=== PATIENT | female | born 1985 | race Asian ===

== ENCOUNTER 2017-03-12 09:33 | Inpatient (IN) | payer SELFPAY ==
[~2017-03-12] VITALS: Ht 154.9 cm; Wt 70.8 kg
[2017-03-15] MEDS ORDERED: OXYTOCIN 10 UNITS/ML VIAL IM ONE (01:40)
[2017-03-15] MEDS ORDERED: NALBUPHINE 10 MG/ML AMP IVP PRN (01:40)
[2017-03-15] MEDS ORDERED: METHYLERGONOVINE 0.2 MG/ML AMP IM PRN (01:40)
[2017-03-15] MEDS ORDERED: CARBOPROST 250 MCG/ML AMP IM PRN (01:40)
[2017-03-15] MEDS ORDERED: PROMETHAZINE 25 MG/ML VIAL IVP PRN (01:40)
[2017-03-15] MEDS ORDERED: OXYTOCIN 20 UNITS in LACTATED RINGERS 1,000 ML IV SCH (01:40)
[2017-03-15 02:46] LABS: BASOPHILS # (AUTO) 0.1 K/uL (0.00-0.22); BASOPHILS % (AUTO) 0.7 % (0.0-2.0); EOSINOPHILS # (AUTO) 0.1 K/uL (0-0.4); EOSINOPHILS % (AUTO) 1.2 % (0.0-4.0); HEMATOCRIT 37.5 % (36-48); HEMOGLOBIN 12.5 g/dL (12.0-16.0); LYMPHOCYTES # (AUTO) 1.5 K/uL (2.5-16.5); LYMPHOCYTES % (AUTO) 17.2 % (20.5-51.1); MEAN CORPUSCULAR HEMOGLOBIN 30 pg (27-31); MEAN CORPUSCULAR HGB CONC 33 g/dL (33-37); MEAN CORPUSCULAR VOLUME 89 fL (80-94); MONOCYTES # (AUTO) 0.8 K/uL (0.8-1.0); MONOCYTES % (AUTO) 8.4 % (1.7-9.3); NEUTROPHILS # (AUTO) 6.5 K/uL (1.8-7.7); NEUTROPHILS % (AUTO) 72.5 % (42.2-75.2); PLATELET COUNT (AUTO) 98 K/uL (140-450); RED BLOOD CELL COUNT(AUTO) 4.22 MIL/uL (4.20-5.40); RED CELL DISTRIBUTION WIDTH 13.2 % (11.6-13.7)
[2017-03-15] MEDS: LACTATED RINGERS 1,000 ML IV SCH ×3 (02:52→20:28)
[2017-03-15] MEDS ORDERED: MISOPROSTOL 25 MCG TAB VG SCH (03:00)
[2017-03-15] MEDS ORDERED: MISOPROSTOL 25 MCG TAB ONE (03:13)
[2017-03-15 03:30] LABS: APPEARANCE,URINE CLEAR (CLEAR); BILIRUBIN,URINE NEGATIVE (NEGATIVE); BLOOD, URINE 2+ (NEGATIVE); COLOR,URINE YELLOW (YELLOW); LEUKOCYTE ESTERASE ,URINE NEGATIVE (NEGATIVE); NITRITE, URINE NEGATIVE (NEGATIVE); UGLUCOSE NEGATIVE (NEGATIVE)
[2017-03-15 05:06] LABS: RBC,URINE 0-5 (RARE) /HPF (0-5); WBC,URINE 0-5 (RARE) /HPF (0-5)
[2017-03-15 05:16] VITALS: BP 110/77
--- NOTE | 2017-03-15 08:44 | NUR ---
PATIENT HAS BEEN SCREENED AND CATEGORIZED LOW NUTRITION RISK. PATIENT WILL BE SEEN WITHIN 7 DAYS OF ADMISSION. 03/21/[address]
[2017-03-15] MEDS ORDERED: PROMETHAZINE 25 MG/ML VIAL ONE (13:06)
[2017-03-15] MEDS ORDERED: NALBUPHINE HYDROCHLORIDE 10 MG/ML VIAL ONE (13:06)
[2017-03-15] MEDS ORDERED: ROPIVACAINE 0.2%/NS PREMIX 250 ML EPI ONE (14:57)
[2017-03-15] MEDS ORDERED: ROPIVACAINE 0.2%/NS PREMIX 250 ML EPI SCH (15:30)
[2017-03-15] MEDS ORDERED: OXYTOCIN 10 UNITS/ML VIAL ONE (18:47)
[2017-03-15] MEDS ORDERED: METHYLERGONOVINE 0.2 MG/ML AMP ONE (22:04)
[2017-03-16] MEDS ORDERED: ceFAZolin 1,000 MG VIAL ONE (00:30)
[2017-03-16] MEDS ORDERED: oxyCODONE/APAP 5/325 MG 1 TAB TAB PO PRN (01:20)
[2017-03-16] MEDS ORDERED: BENZOCAINE/MENTHOL 20%-0.5% 60 GM CAN TP PRN (01:20)
[2017-03-16] MEDS ORDERED: METHYLERGONOVINE 0.2 MG/ML AMP IM PRN (01:20)
[2017-03-16] MEDS ORDERED: HYDROcodone/APAP 5/325 MG 1 TAB TAB PO PRN (01:20)
[2017-03-16] MEDS ORDERED: MEASLES, MUMPS, AND RUBELLA 1 VIAL SQVAC PRN (01:20)
[2017-03-16] MEDS ORDERED: OXYTOCIN 10 UNITS/ML VIAL IM PRN (01:20)
[2017-03-16] MEDS ORDERED: IBUPROFEN 800 MG TAB PO PRN (01:20)
[2017-03-16] MEDS ORDERED: TEMAZEPAM 15 MG CAP PO PRN (01:20)
[2017-03-16 07:48] LABS: BASOPHILS % (AUTO) 0.2 % (0.0-2.0); EOSINOPHILS # (AUTO) 0.4 K/uL (0-0.4); EOSINOPHILS % (AUTO) 2.6 % (0.0-4.0); HEMATOCRIT 32.3 % (36-48); HEMOGLOBIN 10.9 g/dL (12.0-16.0); LYMPHOCYTES # (AUTO) 0.8 K/uL (2.5-16.5); LYMPHOCYTES % (AUTO) 4.9 % (20.5-51.1); MEAN CORPUSCULAR HEMOGLOBIN 30 pg (27-31); MEAN CORPUSCULAR HGB CONC 34 g/dL (33-37); MEAN CORPUSCULAR VOLUME 88 fL (80-94); MONOCYTES # (AUTO) 0.5 K/uL (0.8-1.0); NEUTROPHILS # (AUTO) 15.4 K/uL (1.8-7.7); NEUTROPHILS % (AUTO) 89.3 % (42.2-75.2); PLATELET COUNT (AUTO) 110 K/uL (140-450); RED BLOOD CELL COUNT(AUTO) 3.68 MIL/uL (4.20-5.40); RED CELL DISTRIBUTION WIDTH 12.8 % (11.6-13.7); WHITE BLOOD COUNT (AUTO) 17.1 K/uL (4.8-10.8)
[2017-03-16] MEDS: IBUPROFEN 800 MG TAB PO PRN (14:10)
[2017-03-16 16:37] LABS: RAPID PLASMA REAGIN NON-REACTIVE (Non Reactiv)
[2017-03-16] MEDS ORDERED: DOCUSATE SOD/SENNA 50/8.6 MG 1 TAB PO SCH (21:00)
[2017-03-17] MEDS: IBUPROFEN 800 MG TAB PO PRN (09:33)
== END 2017-03-17 21:50 | disposition home or self-care (01) | DRG 775 ==
LOC: MLD 03-15 00:50 → MFCC 03-16 06:18
PROVIDERS: ADMIT Obstetrics & Gynecology; ATTEND Obstetrics & Gynecology
PROC: 10E0XZZ Delivery of Products of Conception, External Approach (ICD-10-PCS; principal; 2017-03-15)
PROC: 0W8NXZZ Division of Female Perineum, External Approach (ICD-10-PCS; 2017-03-15)
PROC: 3E0S3CZ (ICD-10-PCS; 2017-03-15)
PROC: 00HU33Z Insertion of Infusion Device into Spinal Canal, Percutaneous Approach (ICD-10-PCS; 2017-03-15)
PROC: 3E033VJ Introduction of Other Hormone into Peripheral Vein, Percutaneous Approach (ICD-10-PCS; 2017-03-15)
DX: O69.1XX0 Labor and delivery complicated by cord around neck, with compression, not applicable or unspecified (principal); Z37.0 Single live birth; Z3A.39 39 weeks gestation of pregnancy
CPT/HCPCS: 36415; 51702; 59200; 59409; 81001; 85025; 86592; 86886; 86900; 86901; 90715; J0690; J2210; J2300; J2550; J2590; J2795; J7060; J7120